=== PATIENT | female | born 1985 | race Caucasian/White ===

== ENCOUNTER → 2016-11-12 | Outpatient (CLI) | payer SELFPAY ==
[~2016-11-12] VITALS: Ht 156.2 cm; Wt 68.7 kg
[~2016-11-12] MED LIST: ENDOCET 5-3251 EACH PO; IBUPROFEN800 MG PO; Motrin PO; NATALCARE RX1 TABLE1 PO; PERCOCET 5/31 TABLET PO; Percocet 5/325,Endoc PO
[2016-11-12 09:20] VITALS: BP 120/59
== END | disposition home or self-care (01) ==
LOC: IVINF 09:00
DX: Z67.41 Type O blood, Rh negative (principal); Z3A.28 28 weeks gestation of pregnancy
CPT/HCPCS: 96372; J2790

== ENCOUNTER 2017-01-25 14:28 | Inpatient (IN) | payer SELFPAY ==
[~2017-01-25] VITALS: Ht 157.5 cm; Wt 73.5 kg
[2017-01-25] VITALS (8 sets, daily range): BP systolic 129–143; BP diastolic 62–87
[2017-01-25] MEDS ORDERED: IBUPROFEN800 MG PO (15:23)
[2017-01-26 07:55] VITALS: BP 141/81
[2017-01-26 16:00] VITALS: BP 118/70
== END 2017-01-26 19:45 | disposition home or self-care (01) | DRG 775 ==
LOC: LDRP-OP 14:28 → 2WEST 14:29 → LDRP-OP 03-01 11:16
PROC: 10E0XZZ Delivery of Products of Conception, External Approach (ICD-10-PCS; principal; 2017-01-25)
DX: O62.3 Precipitate labor (principal); O36.0931 Maternal care for other rhesus isoimmunization, third trimester, fetus 1; Z3A.39 39 weeks gestation of pregnancy; Z37.0 Single live birth; O34.211 Maternal care for low transverse scar from previous cesarean delivery; O13.4 Gestational [pregnancy-induced] hypertension without significant proteinuria, complicating childbirth
CPT/HCPCS: J2590